=== PATIENT | male | born 1970 | race African-American/Black ===

== ENCOUNTER 2021-06-01 07:39 | Emergency (ER) | payer SELFPAY ==
[~2021-06-01] VITALS: Ht 185.4 cm; Wt 93.0 kg
[2021-06-01 08:48] VITALS: BP 123/87
[2021-06-01] MEDS ORDERED: DexAMETHasone SOD PHOS 10MG/1ML VIAL INJ IM ONE (09:00)
[2021-06-01] MEDS ORDERED: cefTRIAXone SOD 1,000 MG VL IM ONE (09:00)
[2021-06-01] MEDS ORDERED: LIDOCAINE 1% HCL (LOCAL ANESTH.) INJ 20ML MDV ONE (09:04)
== END 2021-06-01 09:35 | disposition home or self-care (01) ==
LOC: ER 07:39
DX: U07.1 COVID-19 (principal); M79.10 Myalgia, unspecified site; E11.9 Type 2 diabetes mellitus without complications
CPT/HCPCS: 36415; 71045; 87426; 96372; 99284; J0696; J1100; J2001

== ENCOUNTER 2021-06-03 06:57 | Inpatient (IN) | payer BC ==
[~2021-06-03] VITALS: Ht 177.8 cm; Wt 91.8 kg
[2021-06-03] MEDS ORDERED: ASCORBIC ACID 500 MG TAB PO ONE (07:30)
[2021-06-03] MEDS ORDERED: cefTRIAXone 1GM/50ML D5W 50 ML IV ONE (07:30)
[2021-06-03] MEDS ORDERED: ZINC SULFATE 220mg CAP or TAB PO ONE (07:30)
[2021-06-03] MEDS ORDERED: ACETAMINOPHEN 325 MG TAB PO ONE (07:30)
[2021-06-03] MEDS ORDERED: DexAMETHasone SOD PHOS 10MG/1ML VIAL INJ IV ONE (07:30)
[2021-06-03 07:59] LABS: Basophils # (auto) 0 10 ^3/uL (0-0.2); Basophils % (auto) 0.2 % (0.0-2.0); Eosinophils # (auto) 0 10 ^3/uL (0-0.8); Hematocrit 44.5 % (41.0-53.0); Hemoglobin 15.7 g/dL (13.5-17.5); Lymphocytes # (auto) 1.3 10 ^3/uL (0.4-5.4); Lymphocytes % (auto) 16.6 % (10.0-50.0); Mean Corpuscular Hemoglobin 30.8 pg (28.0-32.0); Mean Corpuscular Hgb Conc. 35.3 g/dL (32.0-36.0); Mean Corpuscular Volume 87.5 fL (80.0-100.0); Monocytes # (auto) 0.5 10 ^3/uL (0-1.3); Neutrophils # (auto) 5.9 10 ^3/uL (1.6-8.6); Neutrophils % (auto) 77.2 % (37.0-80.0); Red Blood Cells 5.08 10^6/uL (4.5-5.90); Red Cell Distribution Width 13.6 % (11.8-14.3); White Blood Cell 7.7 10^3/uL (4.4-10.8)
[2021-06-03 08:35] LABS: Albumin 3.3 g/dL (3.4-5.0); Calcium 8.5 mg/dL (8.5-10.1); Potassium 4.1 mmol/L (3.5-5.1)
[2021-06-03 08:43] LABS: BUN/Creatinine Ratio 16.5; Bilirubin, Total 0.4 mg/dL (0.2-1.0); CRP High Sensitivity 3.29 mg/dL (< 0.3); Total Protein 8.4 g/dL (6.4-8.2)
[2021-06-03] MEDS ORDERED: REMDESIVIR PER PHARMACY 0 ML IV SCH (11:15)
[2021-06-03] MEDS ORDERED: NITROGLYCERIN 0.4 MG SL TAB SL PRN (11:15)
[2021-06-03] MEDS ORDERED: MORPHINE SULF INJ 2 MG/ML SYRINGE 1ML IV PRN (11:15)
[2021-06-03] MEDS ORDERED: DEXTROSE (50%) 50ML SYRG IV PRN (11:45)
[2021-06-03] MEDS ORDERED: LACTULOSE 20Gm/30ML SOLN PO PRN (11:45)
[2021-06-03] MEDS ORDERED: traMADol HCL 50 MG TAB PO PRN (11:45)
[2021-06-03] MEDS ORDERED: PROMETHAZINE HCL 25 MG/ML 1ML IV PRN (11:45)
[2021-06-03] MEDS ORDERED: TEMAZEPAM 15 MG CAP PO PRN (11:45)
[2021-06-03] MEDS ORDERED: ACETAMINOPHEN 500 MG TAB PO PRN (11:45)
[2021-06-03] MEDS: IPRATROPIUM BROMIDE HFA AER IN SCH ×3 (12:00→22:36)
[2021-06-03] MEDS ORDERED: levoFLOXacin 500MG 100 ML IV ONE (12:15)
[2021-06-03 12:30] VITALS: BP 127/90
[2021-06-03] MEDS: SODIUM CHLOR 0.9% PF (SALINE LOCK) 10ML VIAL/SYR IV SCH ×2 (13:43→22:08)
[2021-06-03] MEDS ORDERED: REMDESIVIR 200 MG in NS 210ml LOADING DOSE ADULT IV ONE (16:00)
[2021-06-03] MEDS: ACCU-CHEK COMFORT CURVE STRIP VI SCH ×2 (17:08→22:08)
[2021-06-03] MEDS: InsuLIN REG 1unit/0.01ml Soln (100units/ml) SC SCH ×2 (17:09→22:07)
[2021-06-03 22:00] VITALS: BP 145/95
[2021-06-03] MEDS: ENOXAPARIN SOD 40 MG/0.4 ML SYRINGE SC SCH (22:07)
[2021-06-03] MEDS: FLORASTOR (S. BOULARDII) 250 MG CAP PO SCH (22:08)
[2021-06-03] MEDS: FAMOTIDINE 20 MG TAB PO SCH (22:08)
[2021-06-03] MEDS: BUDESONIDE (INHALATION) 180 MCG IH IN SCH (22:36)
[2021-06-03] MEDS: ALBUTEROL SULF HFA 90MCG INH 200DOSE IN PRN (22:36)
[2021-06-03 23:16] VITALS: BP 145/95
[2021-06-04 05:30] VITALS: BP 146/99
[2021-06-04] MEDS: SODIUM CHLOR 0.9% PF (SALINE LOCK) 10ML VIAL/SYR IV SCH ×3 (06:06→21:23)
[2021-06-04] MEDS: IPRATROPIUM BROMIDE HFA AER IN SCH ×4 (06:24→22:00)
[2021-06-04] MEDS: BUDESONIDE (INHALATION) 180 MCG IH IN SCH ×2 (06:24→20:10)
[2021-06-04] MEDS: ALBUTEROL SULF HFA 90MCG INH 200DOSE IN PRN ×3 (06:24→20:10)
[2021-06-04] MEDS: ACCU-CHEK COMFORT CURVE STRIP VI SCH ×4 (06:30→21:23)
[2021-06-04] MEDS: InsuLIN REG 1unit/0.01ml Soln (100units/ml) SC SCH ×4 (06:31→21:30)
[2021-06-04 06:55] LABS: Basophils # (auto) 0 10 ^3/uL (0-0.2); Basophils % (auto) 0.4 % (0.0-2.0); Eosinophils # (auto) 0 10 ^3/uL (0-0.8); Hematocrit 43.1 % (41.0-53.0); Hemoglobin 14.9 g/dL (13.5-17.5); Lymphocytes # (auto) 1.4 10 ^3/uL (0.4-5.4); Lymphocytes % (auto) 14.7 % (10.0-50.0); Mean Corpuscular Hemoglobin 30.4 pg (28.0-32.0); Mean Corpuscular Hgb Conc. 34.5 g/dL (32.0-36.0); Mean Corpuscular Volume 87.9 fL (80.0-100.0); Monocytes # (auto) 0.6 10 ^3/uL (0-1.3); Monocytes % (auto) 6.3 % (0.0-12.0); Neutrophils # (auto) 7.3 10 ^3/uL (1.6-8.6); Neutrophils % (auto) 78.6 % (37.0-80.0); Nucleated Red Blood Cells % 0.1 %; Red Blood Cells 4.91 10^6/uL (4.5-5.90); Red Cell Distribution Width 13.6 % (11.8-14.3); White Blood Cell 9.3 10^3/uL (4.4-10.8)
[2021-06-04] MEDS ORDERED: IVERMECTIN 3 MG TAB PO ONE (07:00)
[2021-06-04 07:26] LABS: Albumin 2.9 g/dL (3.4-5.0); BUN/Creatinine Ratio 24.1; Bilirubin, Total 0.3 mg/dL (0.2-1.0); Calcium 8.2 mg/dL (8.5-10.1)
[2021-06-04 09:00] VITALS: BP 152/95
[2021-06-04] MEDS ORDERED: diphenhdrAMINE HCL 50 MG/1 ML VL IV PRN (10:30)
[2021-06-04] MEDS: levoFLOXacin 500MG 100 ML IV SCH (10:34)
[2021-06-04] MEDS: DexAMETHasone SOD PHOS 10MG/1ML VIAL INJ IV SCH (10:34)
[2021-06-04] MEDS: FLORASTOR (S. BOULARDII) 250 MG CAP PO SCH ×2 (10:35→21:30)
[2021-06-04] MEDS: ZINC SULFATE 220mg CAP or TAB PO SCH (10:35)
[2021-06-04] MEDS: ASCORBIC ACID 1,000 MG TAB PO SCH (10:36)
[2021-06-04] MEDS: CHOLECALCIFEROL (VITD3) 2,000 UNIT CAP/TAB PO SCH (10:36)
[2021-06-04] MEDS: FAMOTIDINE 20 MG TAB PO SCH ×2 (10:36→21:31)
[2021-06-04] MEDS: ENOXAPARIN SOD 40 MG/0.4 ML SYRINGE SC SCH ×2 (10:37→21:30)
[2021-06-04 13:00] VITALS: BP 140/93
[2021-06-04 14:34] LABS: Urine WBC None Seen /hpf (0 - 3)
[2021-06-04 14:43] LABS: Urine Bacteria NONE SEEN /hpf (None Seen); Urine Blood Negative /uL (Negative); Urine Mucus FEW (None Seen); Urine Specific Gravity 1.024 (1.001-1.035)
[2021-06-04] MEDS: REMDESIVIR 100mg 100 MG in SODIUM CHL 0.9% 230 ML IV SCH (16:50)
[2021-06-04 17:00] VITALS: BP 137/94
[2021-06-04] MEDS ORDERED: METF-371 PO (17:19)
[2021-06-04] MEDS ORDERED: ROSU1TAB15 PO (17:19)
[2021-06-04] MEDS ORDERED: ATOR40TA52 PO (17:19)
[2021-06-04] MEDS ORDERED: GLIP10TA16 PO (17:19)
[2021-06-04] MEDS ORDERED: ENAL20TA8 PO (17:19)
[2021-06-04 18:00] VITALS: BP 137/89
[2021-06-04 22:00] VITALS: BP 119/77
[2021-06-05 05:00] VITALS: BP 136/93
[2021-06-05] MEDS: IPRATROPIUM BROMIDE HFA AER IN SCH ×3 (05:56→18:00)
[2021-06-05] MEDS: BUDESONIDE (INHALATION) 180 MCG IH IN SCH (05:56)
[2021-06-05] MEDS: ALBUTEROL SULF HFA 90MCG INH 200DOSE IN PRN ×2 (05:56→11:20)
[2021-06-05] MEDS: SODIUM CHLOR 0.9% PF (SALINE LOCK) 10ML VIAL/SYR IV SCH ×3 (06:01→22:17)
[2021-06-05] MEDS: ACCU-CHEK COMFORT CURVE STRIP VI SCH ×4 (06:02→22:22)
[2021-06-05] MEDS: IVERMECTIN 3 MG TAB PO SCH (06:14)
[2021-06-05] MEDS: InsuLIN REG 1unit/0.01ml Soln (100units/ml) SC SCH ×4 (06:21→22:14)
[2021-06-05 07:12] LABS: Albumin 3.1 g/dL (3.4-5.0); BUN/Creatinine Ratio 25.7; Calcium 8.6 mg/dL (8.5-10.1)
[2021-06-05 07:16] LABS: Bilirubin, Total 0.4 mg/dL (0.2-1.0); Total Protein 7.8 g/dL (6.4-8.2)
[2021-06-05 08:00] VITALS: BP 137/92
[2021-06-05] MEDS: DexAMETHasone SOD PHOS 10MG/1ML VIAL INJ IV SCH (09:12)
[2021-06-05] MEDS: ASCORBIC ACID 1,000 MG TAB PO SCH (09:13)
[2021-06-05] MEDS: FLORASTOR (S. BOULARDII) 250 MG CAP PO SCH ×2 (09:13→22:17)
[2021-06-05] MEDS: levoFLOXacin 500MG 100 ML IV SCH (09:13)
[2021-06-05] MEDS: FAMOTIDINE 20 MG TAB PO SCH ×2 (09:13→22:17)
[2021-06-05] MEDS: CHOLECALCIFEROL (VITD3) 2,000 UNIT CAP/TAB PO SCH (09:13)
[2021-06-05] MEDS: ZINC SULFATE 220mg CAP or TAB PO SCH (09:13)
[2021-06-05] MEDS: ENOXAPARIN SOD 40 MG/0.4 ML SYRINGE SC SCH ×2 (09:14→22:16)
[2021-06-05 12:00] VITALS: BP 130/90
[2021-06-05] MEDS: REMDESIVIR 100mg 100 MG in SODIUM CHL 0.9% 230 ML IV SCH (14:43)
[2021-06-05 16:00] VITALS: BP 125/87
[2021-06-05 22:00] VITALS: BP 119/71
[2021-06-06] MEDS: IPRATROPIUM BROMIDE HFA AER IN SCH ×5 (00:46→23:12)
[2021-06-06] MEDS: BUDESONIDE (INHALATION) 180 MCG IH IN SCH ×3 (00:46→23:12)
[2021-06-06] MEDS: ALBUTEROL SULF HFA 90MCG INH 200DOSE IN PRN ×3 (00:47→23:12)
[2021-06-06 05:00] VITALS: BP 143/90
[2021-06-06] MEDS: IVERMECTIN 3 MG TAB PO SCH (06:16)
[2021-06-06] MEDS: SODIUM CHLOR 0.9% PF (SALINE LOCK) 10ML VIAL/SYR IV SCH ×3 (06:16→22:34)
[2021-06-06] MEDS: ACCU-CHEK COMFORT CURVE STRIP VI SCH ×4 (06:16→22:35)
[2021-06-06] MEDS: InsuLIN REG 1unit/0.01ml Soln (100units/ml) SC SCH ×4 (06:18→22:36)
[2021-06-06 07:01] LABS: Alanine Aminotransferase 74 U/L (16-61); Albumin 2.6 g/dL (3.4-5.0); Anion Gap 5 (5-15); Aspartate Aminotransferase 35 U/L (15-37); BUN/Creatinine Ratio 30.8; Blood Urea Nitrogen 20 mg/dL (7-18); Calcium 8.8 mg/dL (8.5-10.1); Carbon Dioxide 21 mmol/L (21-32); Chloride 108 mmol/L (98-107); GFR African American 165 mL/min; GFR Non-African American 137 mL/min; Glucose 121 mg/dL (74-106); Potassium 4.3 mmol/L (3.5-5.1); Sodium 134 mmol/L (136-145)
[2021-06-06 07:07] LABS: Alkaline Phosphatase 52 U/L (45-117); Bilirubin, Total 0.3 mg/dL (0.2-1.0); Total Protein 7.5 g/dL (6.4-8.2)
[2021-06-06 08:00] VITALS: BP 129/85
[2021-06-06] MEDS: DexAMETHasone SOD PHOS 10MG/1ML VIAL INJ IV SCH (09:17)
[2021-06-06] MEDS: ZINC SULFATE 220mg CAP or TAB PO SCH (09:17)
[2021-06-06] MEDS: levoFLOXacin 500MG 100 ML IV SCH (09:17)
[2021-06-06] MEDS: FAMOTIDINE 20 MG TAB PO SCH ×2 (09:18→22:35)
[2021-06-06] MEDS: CHOLECALCIFEROL (VITD3) 2,000 UNIT CAP/TAB PO SCH (09:18)
[2021-06-06] MEDS: ASCORBIC ACID 1,000 MG TAB PO SCH (09:18)
[2021-06-06] MEDS: FLORASTOR (S. BOULARDII) 250 MG CAP PO SCH ×2 (09:27→22:34)
[2021-06-06] MEDS: ENOXAPARIN SOD 40 MG/0.4 ML SYRINGE SC SCH ×2 (09:28→22:35)
[2021-06-06 12:00] VITALS: BP 129/97
[2021-06-06] MEDS ORDERED: FUROSEMIDE 20 MG/2 ML VIAL IV ONE (12:15)
[2021-06-06] MEDS ORDERED: POTASSIUM CHL 10 Meq TABLET PO ONE (12:30)
[2021-06-06 13:25] VITALS: BP 129/85
[2021-06-06] MEDS ORDERED: TOCILIZUMAB 400 MG in SODIUM CHL 0.9% 80 ML IV ONE (14:00)
[2021-06-06] MEDS: REMDESIVIR 100mg 100 MG in SODIUM CHL 0.9% 230 ML IV SCH (15:00)
[2021-06-06 16:00] VITALS: BP 124/84
[2021-06-06 22:17] VITALS: BP 128/74
[2021-06-07 05:13] VITALS: BP 128/93
[2021-06-07] MEDS: IPRATROPIUM BROMIDE HFA AER IN SCH ×4 (06:13→22:00)
[2021-06-07] MEDS: BUDESONIDE (INHALATION) 180 MCG IH IN SCH ×2 (06:14→19:49)
[2021-06-07] MEDS: ALBUTEROL SULF HFA 90MCG INH 200DOSE IN PRN ×3 (06:14→19:53)
[2021-06-07] MEDS: IVERMECTIN 3 MG TAB PO SCH (06:18)
[2021-06-07] MEDS: ACCU-CHEK COMFORT CURVE STRIP VI SCH ×4 (06:18→22:01)
[2021-06-07] MEDS: SODIUM CHLOR 0.9% PF (SALINE LOCK) 10ML VIAL/SYR IV SCH ×3 (06:18→22:00)
[2021-06-07] MEDS: InsuLIN REG 1unit/0.01ml Soln (100units/ml) SC SCH ×4 (06:29→22:02)
[2021-06-07 08:00] VITALS: BP 129/85
[2021-06-07 09:00] VITALS: BP 129/84
[2021-06-07] MEDS: FUROSEMIDE 20 MG/2 ML VIAL IV SCH (09:29)
[2021-06-07] MEDS: levoFLOXacin 500MG 100 ML IV SCH (09:29)
[2021-06-07] MEDS: DexAMETHasone SOD PHOS 10MG/1ML VIAL INJ IV SCH (09:29)
[2021-06-07] MEDS: ZINC SULFATE 220mg CAP or TAB PO SCH (09:30)
[2021-06-07] MEDS: FLORASTOR (S. BOULARDII) 250 MG CAP PO SCH ×2 (09:30→22:00)
[2021-06-07] MEDS: FAMOTIDINE 20 MG TAB PO SCH (09:30)
[2021-06-07] MEDS: ASCORBIC ACID 1,000 MG TAB PO SCH (09:30)
[2021-06-07] MEDS: CHOLECALCIFEROL (VITD3) 2,000 UNIT CAP/TAB PO SCH (09:30)
[2021-06-07] MEDS: POTASSIUM CHL 10 Meq TABLET PO SCH (09:30)
[2021-06-07] MEDS: ENOXAPARIN SOD 40 MG/0.4 ML SYRINGE SC SCH ×2 (09:31→22:00)
[2021-06-07] MEDS ORDERED: TOCILIZUMAB 400 MG in SODIUM CHL 0.9% 80 ML IV ONE (10:00)
[2021-06-07 13:00] VITALS: BP 115/79
[2021-06-07] MEDS ORDERED: REMDESIVIR 100mg 100 MG in SODIUM CHL 0.9% 230 ML IV SCH (15:00)
[2021-06-07 17:00] VITALS: BP 116/67
[2021-06-07 22:00] VITALS: BP 113/70
[2021-06-08 05:22] VITALS: BP 135/102
[2021-06-08] MEDS: SODIUM CHLOR 0.9% PF (SALINE LOCK) 10ML VIAL/SYR IV SCH ×2 (06:22→15:55)
[2021-06-08] MEDS: ACCU-CHEK COMFORT CURVE STRIP VI SCH ×2 (06:22→11:48)
[2021-06-08] MEDS: IVERMECTIN 3 MG TAB PO SCH (06:22)
[2021-06-08] MEDS: InsuLIN REG 1unit/0.01ml Soln (100units/ml) SC SCH ×2 (06:24→11:49)
[2021-06-08] MEDS: BUDESONIDE (INHALATION) 180 MCG IH IN SCH (08:16)
[2021-06-08] MEDS: ALBUTEROL SULF HFA 90MCG INH 200DOSE IN PRN (08:16)
[2021-06-08] MEDS: IPRATROPIUM BROMIDE HFA AER IN SCH ×2 (08:16→12:46)
[2021-06-08 09:00] VITALS: BP 121/80
[2021-06-08] MEDS ORDERED: ZINC220T6 PO (09:55)
[2021-06-08] MEDS ORDERED: FAMO20TA10 PO (09:55)
[2021-06-08] MEDS ORDERED: CHOL20007 PO (09:55)
[2021-06-08] MEDS ORDERED: ASCO10003 PO (09:55)
[2021-06-08] MEDS ORDERED: BUDE2SUS3 IN (09:55)
[2021-06-08] MEDS ORDERED: ASPI-378 PO (09:55)
[2021-06-08] MEDS ORDERED: ALBUAER3 IN (09:55)
[2021-06-08] MEDS ORDERED: DEX4T PO (09:55)
[2021-06-08] MEDS ORDERED: LEVO500T31 PO (09:58)
[2021-06-08] MEDS: DexAMETHasone SOD PHOS 10MG/1ML VIAL INJ IV SCH (10:26)
[2021-06-08] MEDS: FUROSEMIDE 20 MG/2 ML VIAL IV SCH (10:27)
[2021-06-08] MEDS: POTASSIUM CHL 10 Meq TABLET PO SCH (10:27)
[2021-06-08] MEDS: ASCORBIC ACID 1,000 MG TAB PO SCH (10:27)
[2021-06-08] MEDS: CHOLECALCIFEROL (VITD3) 2,000 UNIT CAP/TAB PO SCH (10:27)
[2021-06-08] MEDS: ENOXAPARIN SOD 40 MG/0.4 ML SYRINGE SC SCH (10:27)
[2021-06-08] MEDS: FLORASTOR (S. BOULARDII) 250 MG CAP PO SCH (10:27)
[2021-06-08] MEDS: ZINC SULFATE 220mg CAP or TAB PO SCH (10:27)
[2021-06-08 13:00] VITALS: BP 117/78
[2021-06-08 16:26] VITALS: BP 117/78
== END 2021-06-08 17:41 | disposition home or self-care (01) | DRG 177 ==
LOC: ER 06:57 → TELE 11:10 → TELE-EAST 19:39
PROVIDERS: ADMIT Internal Medicine; ATTEND Internal Medicine
PROC: XW033E5 Introduction of Remdesivir Anti-infective into Peripheral Vein, Percutaneous Approach, New Technology Group 5 (ICD-10-PCS; principal; 2021-06-03)
PROC: XW033H5 Introduction of Tocilizumab into Peripheral Vein, Percutaneous Approach, New Technology Group 5 (ICD-10-PCS; 2021-06-06)
DX: U07.1 COVID-19 (principal); J12.82 Pneumonia due to coronavirus disease 2019; J96.01 Acute respiratory failure with hypoxia; D89.835 Cytokine release syndrome, grade 5; E11.9 Type 2 diabetes mellitus without complications; E66.9 Obesity, unspecified; I10 Essential (primary) hypertension; E78.5 Hyperlipidemia, unspecified; Z68.29 Body mass index [BMI] 29.0-29.9, adult; Z82.49 Family history of ischemic heart disease and other diseases of the circulatory system; Z83.3 Family history of diabetes mellitus
CPT/HCPCS: 36415; 36600; 71045; 80053; 81001; 82306; 82728; 82805; 82962; 83036; 83605; 83615; 85025; 85379; 86141; 86850; 86900; 86901; 93005; 94640; 96365; 96367; 96375; 99291; G0378; J0696; J1100; J1815; J1956